=== PATIENT | male | born 1950 | race American Indian/Alaskan Native ===

== ENCOUNTER 2019-04-14 08:23 | Emergency (ER) | payer MEDICARE ==
[2019-04-14 08:30] VITALS: BP 178/114
--- NOTE | 2019-04-14 08:48 | Emergency Department Report ---
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 Patient states he has no penile discharge dysuria hematuria or testicular pain or swelling or rash. - ROS Review of Systems: All other systems are reviewed and are negative - Exam Vital Signs: Vital Signs 04/14/19 08:29 Temperature 98.2 F Pulse Rate 108 H Respiratory 16 Rate Blood Pressure 178/114 O2 Sat by Pulse 99 Oximetry Physical Exam: Patient is alert and oriented 3 in no acute distress. Genital exam was within normal limits. MSE screening note: Focused history and physical exam performed. Due to findings the following was ordered: ED Medical Decision Making - Medical Decision Making Patient has not medical emergency at this time. Patient is asymptomatic. Patient encouraged to use [id number] antifungal creams if he develops any type of rash however the patient was reassured that likely he would not have any symptoms from contact with someone with a yeast infection ED Disposition for MSE Clinical Impression: Normal exam Disposition: Z-07 MED SCREENING EXAM-LEFT Is pt being admited?: No Does the pt Need Aspirin: No Condition: Stable Referrals: CINTHYA VILLAGRAN MD [Staff Physician] - as needed Time of Disposition: 08:47
== END 2019-04-14 08:55 | disposition left against medical advice (07) ==
LOC: ED 08:23
DX: Z00.00 Encounter for general adult medical examination without abnormal findings (principal)
CPT/HCPCS: 99281

== ENCOUNTER 2021-03-12 08:51 | Emergency (ER) | payer MEDICARE ==
[2021-03-12 08:59] VITALS: BP 163/118
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
== END 2021-03-12 09:36 | disposition home or self-care (01) ==
LOC: ED 08:51
DX: H11.32 Conjunctival hemorrhage, left eye (principal); I10 Essential (primary) hypertension; G89.29 Other chronic pain; Z79.899 Other long term (current) drug therapy
CPT/HCPCS: 99281